=== PATIENT | female | born 1980 ===

== ENCOUNTER 2017-08-08 10:55 | Emergency (ER) | payer OTHER ==
[~2017-08-08] VITALS: Ht 160 cm; Wt 52.2 kg
== END 2017-08-08 14:31 | disposition home or self-care (01) ==
LOC: ER 10:55
DX: J11.1 Influenza due to unidentified influenza virus with other respiratory manifestations (principal); B34.9 Viral infection, unspecified

== ENCOUNTER 2019-07-16 13:16 | Emergency (ER) | payer OTHER ==
[~2019-07-16] VITALS: Ht 157.5 cm; Wt 50.3 kg
== END 2019-07-16 16:57 | disposition home or self-care (01) ==
LOC: ER 13:16
DX: J11.1 Influenza due to unidentified influenza virus with other respiratory manifestations (principal)